=== PATIENT | female | born 1930 | race Caucasian/White ===

== ENCOUNTER 2017-07-30 14:16 | Emergency (ER) | payer MEDICARE ==
[2017-07-30 14:55] LABS: BASOPHILS % (AUTO) 0.6 % (0.0-5.0); HEMATOCRIT 35.2 % (36-48); MEAN CORPUSCULAR HEMOGLOBIN 34.7 pg (27.0-33.0); MEAN CORPUSCULAR HGB CONC 33.4 g/dL (32.0-36.0); MEAN CORPUSCULAR VOLUME 103.8 fL (79-99); MONOCYTES % (AUTO) 12.8 % (3.0-13.0); NEUTROPHILS % (AUTO) 74.6 % (40.0-77.0); PLATELET COUNT (AUTO) 244 K/uL (130-400); RED BLOOD CELL COUNT(AUTO) 3.39 MIL/uL (4.00-5.50); WHITE BLOOD COUNT (AUTO) 12.2 K/uL (4.8-10.8)
[2017-07-30] MEDS ORDERED: SODIUM CHLORIDE 0.9% 1000ML 1,000 ML IV ONE (15:04)
[2017-07-30] MEDS ORDERED: GUAIFENESIN SUGAR-FREE 100 MG/5 ML UDCUP ONE (15:04)
[2017-07-30 15:13] LABS: CREATININE 0.7 mg/dL (0.5-1.5); POTASSIUM 4.2 mmol/L (3.5-5.1)
[2017-07-30 15:19] LABS: B-TYPE NATRIURETIC PEPTIDE 200 pg/mL (0-100)
[2017-07-30] MEDS ORDERED: ASPIRIN 325 MG TABLET ONE (15:41)
[2017-07-30] MEDS ORDERED: THIAMINE HCL 100 MG/ML 2ML VIAL ONE (15:44)
[2017-07-30] MEDS ORDERED: LISINOPRIL 5 MG TABLET ONE (19:21)
== END 2017-07-30 19:31 | disposition home or self-care (01) ==
LOC: EDH 14:16
DX: I11.0 Hypertensive heart disease with heart failure (principal); I50.9 Heart failure, unspecified; R09.81 Nasal congestion; M19.90 Unspecified osteoarthritis, unspecified site; I48.92 Unspecified atrial flutter; D64.9 Anemia, unspecified; G30.9 Alzheimer's disease, unspecified
CPT/HCPCS: 36415; 71045; 80048; 83880; 84484 ×2; 85025; 93005 ×2; 96365; 99285; J3411; J7030